=== PATIENT | female | born 1990 | race Caucasian/White ===

== ENCOUNTER 2024-02-22 10:08 | Inpatient (IN) ==
[2024-02-22] MEDS ORDERED: Lidocaine 1% VIAL 10 MG/ML 30 ML VIAL INJ PRN (12:06)
[2024-02-22] MEDS: miSOPROStol 100 mcg TAB ONE (12:40)
[2024-02-22 13:37] LABS: Urine Benzodiazepine Screen None Detected (None Detect); Urine Cannabinoids Screen None Detected (None Detect); Urine Opiates Screen None Detected (None Detect)
[2024-02-22] MEDS: miSOPROStol 100 mcg TAB VAGINAL ONE (17:28)
[2024-02-22 22:09] LABS: ABS Lymphocytes 1.9 10^3/uL (1.0-4.8); ABS Monocytes 0.5 10^3/uL (0.0-0.9); ABS Neutrophils 4.5 10^3/uL (1.5-7.6); Eosinophil % 0.7 %; Hemoglobin 12.8 g/dL (11.5-14.3); Mean Corpuscular Hemoglobin 31.6 pg (27-33); Mean Corpuscular Hgb Conc 35.6 g/dL (31-36); Mean Corpuscular Volume 88.8 fL (80-97); Mean Platelet Volume 8.5 fL (7.5-11.2); Nucleated Red Blood Cells % 0.1 %/100WBC (0.0-0.8); Platelet Count 203 10^3/uL (150-450); Red Blood Count 4.06 10^6/uL (3.63-4.92); Red Cell Distribution Width 13.7 % (12-17); White Blood Count 6.9 10^3/uL (3.8-11.8)
[2024-02-22] MEDS: Lactated Ringers 1000 ml BAG 1,000 ML IV ONE (22:09)
[2024-02-22] MEDS: Oxytocin in LR 20,000 MILLI.UNIT/1,000 ML BAG IV SCH (22:53)
[2024-02-22] MEDS: Buffered Lidocaine 1% SYRIN 1 ml INTRADERM ONE (22:57)
[2024-02-22] MEDS: Lactated Ringers 1000 ml BAG 1,000 ML IV SCH (23:10)
[2024-02-23] MEDS: Ondansetron 4 mg VIAL 2 MG/ML 2 ml VIAL IV PRN (00:06)
[2024-02-23] MEDS: OBEPIDURAL (200 ML) 200 ML EPIDURAL ONE (05:07)
[2024-02-23] MEDS: Lidocaine 1.5% EPI 1:200,000 30 ML SDV ONE (05:08)
[2024-02-23] MEDS ORDERED: Phenylephrine 40 mcg/mL 10mL (400mcg) SYRINGE IV PUSH PRN ×2 (05:24)
[2024-02-23] MEDS ORDERED: Sodium Citrate/Citric Acid LIQ 15 ML UDC PO PRN (05:24)
[2024-02-23 06:24] LABS: Urine Appearance Clear; Urine Bilirubin Negative (Negative); Urine Blood Negative (Negative); Urine Color Colorless; Urine Glucose Negative (Negative); Urine Ketones Negative (Negative); Urine Nitrite Negative (Negative); Urine Protein Negative (Negative); Urine Specific Gravity 1.001 (1.002-1.030); Urine Urobilinogen Negative (Negative)
[2024-02-23] MEDS: Lactated Ringers 1000 ml BAG 1,000 ML IV SCH (06:42)
[2024-02-23] MEDS: Phenylephrine 40 mcg/mL 10mL (400mcg) SYRINGE ONE (06:42)
[2024-02-23] MEDS: Lactated Ringers 1000 ml BAG 1,000 ML IV ONE (06:42)
[2024-02-23] MEDS: OBEPIDURAL (200 ML) 200 ML EPIDURAL SCH (06:43)
[2024-02-23] MEDS: Famotidine IV 10 MG/ML 2 ml VIAL (20 mg) ONE (13:10)
[2024-02-23] MEDS ORDERED: Polyethylene Glycol 3350 17 GM PACKET PO PRN (13:54)
[2024-02-23] MEDS ORDERED: Lactated Ringers 1000 ml BAG 1,000 ML IV SCH (14:00)
[2024-02-23] MEDS: Dibucaine 1% OINT 28.35 GM TUBE PR PRN (14:34)
[2024-02-23] MEDS: Witch Hazel PAD JAR TOPICAL PRN (14:34)
[2024-02-24 06:54] LABS: ABS Lymphocytes 1.7 10^3/uL (1.0-4.8); ABS Monocytes 0.6 10^3/uL (0.0-0.9); ABS Neutrophils 7.5 10^3/uL (1.5-7.6); Eosinophil % 0.5 %; Hematocrit 30.8 % (35-45); Lymphocyte % 16.9 %; Mean Corpuscular Hemoglobin 31.7 pg (27-33); Mean Corpuscular Hgb Conc 35.6 g/dL (31-36); Mean Platelet Volume 7.9 fL (7.5-11.2); Platelet Count 151 10^3/uL (150-450); Red Blood Count 3.46 10^6/uL (3.63-4.92); Red Cell Distribution Width 13.9 % (12-17); White Blood Count 9.8 10^3/uL (3.8-11.8)
[2024-02-24] MEDS: Famotidine IV 10 MG/ML 2 ml VIAL (20 mg) IV SLOW PU ONE (08:59)
[2024-02-24] MEDS: CMC:Omeprazole 20 mg CAP (NF) PO ONE (14:30)
[2024-02-24] MEDS: Oxytocin in LR 20,000 MILLI.UNIT/1,000 ML BAG IV SCH (19:16)
[2024-02-25 07:34] VITALS: BP 120/88
== END 2024-02-25 13:52 | disposition home or self-care (01) | DRG 560 ==
LOC: MCHOBOUT 10:08 → MCHOB 12:21
PROVIDERS: ATTEND Midwife